=== PATIENT | female | born 1970 | race Caucasian/White ===

== ENCOUNTER → 2019-04-28 12:37 | Outpatient (CLI) | payer OTHER, MEDICAID, SELFPAY | PROVIDERS: Family Provider Orthopaedic Surgery Orthopaedic Surgery of the Spine; PCP Nurse Practitioner; Referring Provider Physical Medicine & Rehabilitation; Visit Provider Family Medicine | DX: M54.16 Radiculopathy, lumbar region (principal); M54.17 Radiculopathy, lumbosacral region; S29.019D Strain of muscle and tendon of unspecified wall of thorax, subsequent encounter; M99.03 Segmental and somatic dysfunction of lumbar region | CPT/HCPCS: 95885; 95886; 95909; 95910 ==

== ENCOUNTER 2020-10-02 12:22 | Emergency (ER) | payer OTHER, SELFPAY ==
[2020-10-02 12:25] VITALS: BP 141/79; PULSE 77; RESP 15; TEMP 36.6; O2SAT 97; BMI 34.0
--- NOTE | 2020-10-02 12:34 | DI.RAD.S_ITS ---
PROCEDURE: XR CHEST 1V INDICATIONS: chest pain TECHNIQUE: One view of the chest was acquired. COMPARISON: [facility] Outside Film, CT, CT ABDOMEN PELVIS WITH CONTRAST, 11/30/2019, 18:38. FINDINGS: Surgical changes and devices: None. Lungs and pleura: Lungs are clear. No pleural effusions or pneumothorax. Mediastinum: Mediastinal contours appear normal. Heart size is normal. Bones and chest wall: Note is made of postsurgical changes in the lower cervical spine. No suspicious bony lesions. Overlying soft tissues appear unremarkable. IMPRESSION: No acute cardiopulmonary disease. Dictated by: Sara Wilson M.D. on 10/02/2020 at 13:35 Approved by: Sara Wilson M.D. on 10/02/2020 at 13:37
[2020-10-02 14:24] LABS: Add Manual Diff / Slide Review NO; Basophils Absolute Auto 100 /uL (0-100); Basophils Percent Auto 0.9 % (0-2); Eosinophils Absolute Auto 200 /uL (0-450); Eosinophils Percent Auto 2.5 % (2-4); Hematocrit 41.8 % (36-46); Hemoglobin 13.7 g/dL (12.0-16.0); Lymphocytes Absolute Auto 2000 /uL (1100-4500); Mean Corpuscular HGB Conc 32.7 % (30-36); Mean Corpuscular Hemoglobin 30.1 PG (26-34); Mean Corpuscular Volume 92.1 fL (80-100); Monocytes Absolute Auto 700 /uL (0-900); Monocytes Percent Auto 9.3 % (3-14); Neutrophils Absolute Auto 4100 /uL (1500-7000); Neutrophils Percent Auto 58.3 % (50-75); Platelet Count 254 X10^3/uL (150-400); Red Blood Cell Count 4.53 X10^6/uL (4.0-5.2); Red Cell Distribution Width 13.8 % (11.6-14.8)
--- NOTE | 2020-10-02 14:27 | ED_ITS ---
HPI - Chest Pain General Chief Complaint: Chest Pain Stated Complaint: Chest pain Time Seen by Provider: 10/02/20 12:57 Source: patient Mode of arrival: EMS Limitations: no limitations History of Present Illness HPI narrative: Patient is a 50-year-old female who presents with left-sided chest pain which actually started last night. She said that she took her 1st dose of Flagyl for a vaginal infection. She says she immediately felt like she could not take a deep breath. She said she went to sleep but was not sure she would wake up. She even went to work today but then a co-worker noticed she was not feeling well and ate car with called. She says it hurts when she breathes in fact she feels like she cannot take a deep breath. She is more comfortable when she puts her left arm over her head. She denies any fever. She says she was placed on Flagyl after having year of clear vaginal discharge which recently turned to a collar. She had some sort of ectopic after having a tubal ligation 25 years prior last year, since then she had the clear vaginal fluid in recently started on the Flagyl. She denies any abdominal pain nausea or vomiting. MD complaint: chest pain Onset (ago): day(s) Related Data Home Medications Medication Instructions Recorded Confirmed albuterol sulfate 2 puff INHALATION Q4-6H PRN 01/26/18 02/18/18 ibuprofen 600 mg PO BID 01/26/18 02/18/18 ipratropium-albuterol [Combivent 1 puff INHALATION Q4H PRN 01/26/18 01/26/18 Respimat] tramadol 50 mg PO DAILY 02/18/18 02/18/18 CBD pain stick PO TID 04/25/19 04/25/19 CBD/THC Lozengers PO DAILY PRN 04/25/19 04/25/19 Celery Seed PO 04/25/19 04/25/19 Cider Vinager PO 04/25/19 04/25/19 amoxicillin PO 04/25/19 04/25/19 cholecalciferol (vitamin D3) PO 04/25/19 04/25/19 diphenhydramine HCl PO PRN 04/25/19 04/25/19 lidocaine 5 % topical patch 1 patch TOP DAILY 04/25/19 04/25/19 multivitamin 1 cap PO DAILY 04/25/19 04/25/19 tart powell PO 04/25/19 04/25/19 Allergies Allergy/AdvReac Type Severity Reaction Status Date / Time avocado Allergy Severe Difficulty Verified 10/02/20 12:30 Breathing, thought I would Influenza Virus Vaccines Allergy Severe Rash, SOB Verified 10/02/20 12:30 meperidine [From Demerol] Allergy Severe Rash Verified 10/02/20 12:30 latex Allergy Intermediate Rash Verified 10/02/20 12:30 nickel Allergy Intermediate Rash Verified 10/02/20 12:30 cyclobenzaprine AdvReac Severe It Verified 10/02/20 12:30 [From Flexeril] attacks my nervous system, tremors iv contrast dye Allergy Severe Vomiting Uncoded 04/25/19 08:39 opioids AdvReac Severe Nausea and Uncoded 04/25/19 08:39 vomiting Review of Systems Review of Systems Narrative: GENERAL: Denies chills, fatigue, malaise, fever, sweats, travel HEENT: Denies sinus pain, ear pain, sore throat, difficulty swallowing, neck pain RESPIRATORY: Denies dyspnea, cough, wheezing, hemoptysis, sputum. CARDIOVASCULAR: See HPI GASTROINTESTINAL: Denies nausea, vomiting, abdominal pain, diarrhea, constipation, melena. : Denies dysuria, frequency, incontinence, hematuria, urinary retention, flank pain. MUSCULOSKELETAL: Denies weakness, joint pain, or bony pain SKIN: No rash, no erythema, no pruritus NEUROLOGIC: Denies weakness, dizziness, headache, numbness, change in speech, confusion PSYCHIATRIC: No concerning psychosocial issues. 12 point review of systems is negative except for those stated above and HPI Patient History Medical History Arthritis Asthma Back pain Cervical pain Depression Former smoker Generalized headaches Wolof measles Heart murmur Hypoparathyroidism Numbness Occasional tremors PTSD (post-traumatic stress disorder) Restless leg syndrome Scoliosis Sensitive skin NIKOLE (stress urinary incontinence, female) Tachycardia Surgical History History of bilateral tubal ligation History of lithotripsy S/P ACL reconstruction S/P arthroscopy of left shoulder S/P ASA/PRK (advanced surface ablation photorefractive keratectomy) S/P left knee arthroscopy Social History household members: none Smoking Status: Unknown if ever smoked alcohol intake: current Smoking Status: Unknown if ever smoked alcohol intake frequency: 0-2 drinks per day Substance Use Type: does not use Exam Initial Vital Signs Initial Vital Signs: Vital Signs Temperature 97.9 F 10/02/20 12:25 Pulse Rate 77 10/02/20 12:25 Respiratory Rate 15 10/02/20 12:25 Blood Pressure 141/79 H 10/02/20 12:25 Pulse Oximetry 97 10/02/20 12:25 GENERAL: Well-appearing, well-nourished and in no acute distress. HEENT: Head atraumatic,EOMI, pupils reactive, face symmetric, moist mucous membranes CARDIOVASCULAR: Regular rate and rhythm without murmurs, rubs or gallops. RESPIRATORY: Breath sounds equal bilaterally, no wheezes rales or rhonchi. ABDOMEN: Soft, nontender. Normoactive bowel sounds all 4 quadrants. No guarding or rebound. EXTREMITIES: Normal range of motion, no clubbing or edema. Neurovascularly intact NEUROLOGICAL: Alert and oriented x4.Normal gait and speech. Cranial nerves II through XII grossly intact. SKIN: Warm, dry, no laceration, no petechiae, no rashes or lesions. Course Orders Ordered: ED Orders 10/02/20 12:34 XR chest 1V Stat EKG-12 Lead Stat 10/02/20 14:08 Complete Blood Count AUTO DIFF Stat Comprehensive Metabolic Panel Stat Lipase Stat Partial Thromboplastin Time Stat Prothrombin Time INR Stat Troponin & CK Cardiac Panel Stat Discontinued Medications Albuterol (Albuterol Hfa Prepack) 1 box MISC SEEINSTR ONE Stop: 10/02/20 14:28 Last Admin: 10/02/20 15:21 Dose: 1 box Documented by: MIK Ketorolac Tromethamine (Ketorolac 60 Mg/2 Ml Vial) 30 mg IV NOW ONE Stop: 10/02/20 14:28 Last Admin: 10/02/20 14:48 Dose: 30 mg Documented by: TITA Vital Signs Vital signs: Vital Signs - 8 hr 10/02/20 12:25 10/02/20 15:25 10/02/20 15:35 Temperature 97.9 F Pulse Rate 77 77 Respiratory Rate 15 16 Blood Pressure 141/79 H 124/67 Pulse Oximetry 97 98 98 MDM - Chest Pain Lab Data Attestation: I reviewed the patient's lab results. Result diagrams: 10/02/20 14:08 10/02/20 14:08 Labs: Lab Results 10/02/20 10/02/20 10/02/20 Range/Units 14:08 14:08 14:08 WBC 7.0 (4.5-11.0) X10^3/uL RBC 4.53 (4.0-5.2) X10^6/uL Hgb 13.7 (12.0-16.0) g/dL Hct 41.8 (36-46) % MCV 92.1 (80-100) fL MCH 30.1 (26-34) PG MCHC 32.7 (30-36) % RDW 13.8 (11.6-14.8) % Plt Count 254 (150-400) X10^3/uL Neut % (Auto) 58.3 (50-75) % Lymph % (Auto) 29.0 (25-40) % [place] % (Auto) 9.3 (3-14) % Eos % (Auto) 2.5 (2-4) % Baso % (Auto) 0.9 (0-2) % Neut # (Auto) 4100 (7130-9830) /uL Lymph # (Auto) 2000 (5978-1503) /uL [place] # (Auto) 700 (0-900) /uL Eos # (Auto) 200 (0-450) /uL Baso # (Auto) 100 (0-100) /uL PT 10.9 (10.1-12.7) SECONDS INR 1.0 (0.9-1.3) APTT 26 L (26.4-36.2) SECONDS Sodium 136 L (137-145) mmol/L Potassium 4.3 (3.4-5.1) mmol/L Chloride 108 H (98-107) mmol/L Carbon Dioxide 26 (22-32) mmol/L BUN 21 H (7-17) mg/dL Creatinine 0.72 (0.52-1.04) mg/dL Estimated GFR > 60.0 (>60) mL/min BUN/Creatinine Ratio 29.2 H (6-22) Glucose 96 (70-100) mg/dL Calcium 9.6 (8.4-10.2) mg/dL Total Bilirubin 0.2 (0.2-1.3) mg/dL AST 25 (14-36) IU/L ALT 18 (<35) IU/L Alkaline Phosphatase 43 (38-126) U/L Total Creatine Kinase 52 (30-135) U/L CK-MB (CK-2) TNP CK-MB (CK-2) Rel Index TNP Troponin I < 0.012 (0.01-0.034) ng/mL Total Protein 6.8 (6.3-8.2) g/dL Albumin 4.1 (3.5-5.0) g/dL Globulin 2.7 (1.7-4.1) g/dL Albumin/Globulin Ratio 1.5 (1.0-2.8) Lipase 79 (23-300) U/L Imaging Data Chest x-ray: Radiologist's Impression: PROCEDURE: XR CHEST 1V INDICATIONS: chest pain TECHNIQUE: One view of the chest was acquired. COMPARISON: [facility] Outside Film, CT, CT ABDOMEN PELVIS WITH CONTRAST, 11/30/2019, 18:38. FINDINGS: Surgical changes and devices: None. Lungs and pleura: Lungs are clear. No pleural effusions or pneumothorax. Mediastinum: Mediastinal contours appear normal. Heart size is normal. Bones and chest wall: Note is made of postsurgical changes in the lower cervical spine. No suspicious bony lesions. Overlying soft tissues appear unremarkable. IMPRESSION: No acute cardiopulmonary disease. Dictated by: Sara Wilson M.D. on 10/02/2020 at 13:35 ECG Data Attestation: I personally reviewed and interpreted this ECG as follows: Prior ECG tracings: not available for review Interpretation: Normal sinus rhythm rate 76 p.r. interval 118 QRS 74 QTC [address] changes no T-wave inversions no priors to compare MDM Narrative Medical decision making narrative: Patient pain actually improved with albuterol. She actually does have a history of asthma she feels as though she cannot take a deep breath this is more consistent with asthma rather than cardiac in nature. Pain is unlikely related to Flagyl. And at this time I actually recommend that she continue her Flagyl she has no sign of allergic reaction or even anaphylaxis. Discharge Plan Departure Patient Disposition: Home Clinical Impression: Atypical chest pain Instructions: DI for Atypical Chest Pain Activity Restrictions/Additional Instructions: *You have been diagnosed with atypical chest pain *What to do: At this time blood work is overall reassuring. I your chest disco mfort is likely related to asthma *Continue to take medications as directed Albuterol with spacer 1-2 puffs every 4 hours if needed for chest pain or shortness of breath *Follow up with your primary care provider in 2-3 days *Return to ER if you should have increasing chest pain shortness of breath or any new, worsening or concerning symptoms Prescriptions: No Action ibuprofen 200 mg Tablet 600 mg PO BID RF: 0 albuterol sulfate 90 mcg/actuation Hfa Aerosol Inhaler 2 puff INHALATION Q4-6H PRN (Reason: asthma) RF: 0 ipratropium-albuterol [Combivent Respimat] 20-100 mcg/actuation Mist 1 puff INHALATION Q4H PRN (Reason: Asthma) RF: 0 tramadol 50 mg 50 mg PO DAILY RF: 0 CBD pain stick 500 mg PO TID RF: 0 lidocaine 5 % adhesive patch,medicated 1 patch TOP DAILY RF: 0 cholecalciferol (vitamin D3) PO RF: 0 multivitamin capsule 1 cap PO DAILY RF: 0 Celery Seed PO RF: 0 Cider Vinager PO RF: 0 tart powell PO RF: 0 diphenhydramine HCl PO PRNRF: 0 CBD/THC Lozengers PO DAILY PRNRF: 0 amoxicillin PO RF: 0 Referrals: Eileen Magdaleno ARNP [Primary Care Provider] -
[2020-10-02 14:35] LABS: Prothrombin Time 10.9 SECONDS (10.1-12.7)
[2020-10-02 14:38] LABS: PTT Partial Thromboplastin Tim 26 SECONDS (26.4-36.2)
[2020-10-02 14:41] LABS: Alanine Aminotransferase 18 IU/L (<35); Albumin 4.1 g/dL (3.5-5.0); Albumin Globulin Ratio 1.5 (1.0-2.8); Alkaline Phosphatase 43 U/L (38-126); Aspartate Aminotransferase 25 IU/L (14-36); BUN Creatinine Ratio 29.2 (6-22); Bilirubin Total 0.2 mg/dL (0.2-1.3); Blood Urea Nitrogen 21 mg/dL (7-17); Calcium 9.6 mg/dL (8.4-10.2); Carbon Dioxide 26 mmol/L (22-32); Chloride 108 mmol/L (98-107); Creatine Kinase 52 U/L (30-135); Estimated Glomerular Filt Rate > 60.0 mL/min (>60); Globulin 2.7 g/dL (1.7-4.1); Glucose 96 mg/dL (70-100); HEMOLYSIS < 15 (0-50); Lipase 79 U/L (23-300); Potassium 4.3 mmol/L (3.4-5.1); Sodium 136 mmol/L (137-145); Total Protein 6.8 g/dL (6.3-8.2)
[2020-10-02] MEDS: KETOROLAC 60 MG/2 ML VIAL 30 MG IV (14:48)
[2020-10-02 14:52] LABS: Troponin I < 0.012 ng/mL (0.01-0.034)
[2020-10-02] MEDS: ALBUTEROL HFA PREPACK 1 BOX MISC (15:21)
[2020-10-02 15:25] VITALS: RESP 16; O2SAT 98
[2020-10-02 15:35] VITALS: BP 124/67; PULSE 77; O2SAT 98
== END 2020-10-02 15:48 | disposition home or self-care (01) ==
PROVIDERS: Emergency Provider Emergency Medicine; Family Provider Orthopaedic Surgery Orthopaedic Surgery of the Spine; PCP Nurse Practitioner
DX: R07.89 Other chest pain (principal)
CPT/HCPCS: 36415; 71045; 80053; 82550; 83690; 84484; 85025; 85610; 85730; 93005; 94640; 96374; 99281; 99284; J1885